=== PATIENT | female | born 1985 | race Caucasian/White ===

== ENCOUNTER 2018-02-07 18:37 | Emergency (ER) | payer SELFPAY ==
[~2018-02-07] VITALS: Ht 162.6 cm; Wt 139.6 kg
[~2018-02-07 18:37] MED LIST: CIPRO500 MG OR; COMPAZINE10 MG OR; LORTAB 5 OR; NO MEDS; PERCOCET1 TA2 OR; RANITIDINE150 M1 OR
[2018-02-07] MEDS ORDERED: DILAUDID8 MG PO (18:56)
[2018-02-07] MEDS ORDERED: SEROQUEL300 MG PO (18:58)
[2018-02-07] MEDS ORDERED: MOTRIN800 MG PO (18:59)
[2018-02-07] MEDS ORDERED: CYCLOBENZAPR10 MG PO (18:59)
[2018-02-07 20:30] VITALS: BP 131/70
== END 2018-02-07 20:30 | disposition home or self-care (01) | DRG 605 ==
LOC: ED 18:37
DX: S60.212A Contusion of left wrist, initial encounter (principal); J45.909 Unspecified asthma, uncomplicated; F17.210 Nicotine dependence, cigarettes, uncomplicated; W19.XXXA Unspecified fall, initial encounter; Y92.009 Unspecified place in unspecified non-institutional (private) residence as the place of occurrence of the external cause

== ENCOUNTER 2018-12-16 16:07 | Emergency (ER) | payer SELFPAY ==
[~2018-12-16] VITALS: Ht 162.6 cm; Wt 119.0 kg
[~2018-12-16 16:07] MED LIST changes: +CYCLOBENZAPR10 MG PO; +DILAUDID8 MG PO; +MOTRIN800 MG PO; +SEROQUEL300 MG PO
[2018-12-16 16:41] VITALS: BP 129/79
== END 2018-12-16 16:39 | disposition left against medical advice (07) | DRG 153 ==
LOC: ED 16:07
DX: J02.9 Acute pharyngitis, unspecified (principal); L98.9 Disorder of the skin and subcutaneous tissue, unspecified; F17.200 Nicotine dependence, unspecified, uncomplicated; Z91.19 Patient's noncompliance with other medical treatment and regimen

== ENCOUNTER 2020-05-11 17:51 | Emergency (ER) | payer SELFPAY ==
[~2020-05-11] VITALS: Ht 162.6 cm; Wt 136.6 kg
[2020-05-11] MEDS ORDERED: KEPPRA500 M2 PO (19:22)
[2020-05-11] MEDS ORDERED: AMOXICILLIN875 MG PO (19:22)
[2020-05-11 19:38] VITALS: BP 132/88
== END 2020-05-11 19:38 | disposition home or self-care (01) | DRG 866 ==
LOC: ED 17:51
DX: B34.9 Viral infection, unspecified (principal); J45.909 Unspecified asthma, uncomplicated; F17.210 Nicotine dependence, cigarettes, uncomplicated; Z76.0 Encounter for issue of repeat prescription; Z20.828 Contact with and (suspected) exposure to other viral communicable diseases